=== PATIENT | male | born 1970 | race Caucasian/White ===

== ENCOUNTER 2018-08-17 12:44 | Outpatient (CLI) | payer OTHER ==
--- NOTE | 2018-08-17 15:49 | MRI ---
CERVICAL SPINE NONCONTRAST: 08/17/18 CLINICAL HISTORY: Cervical pain, herniated nucleus pulposus. FINDINGS: There is straightening of the normal cervical curvature. No acute marrow edema or compression fractur e. No significant subluxation. There is no intrinsic expansile process of the cervical spinal cord id entified. No significant central canal stenosis at C1-2 or C2-3 level. C3-4: There is a broad based disc bulge with cephalad disc extrusion producing mild effacement of the ventral thecal sac. Moderate bilateral neural foraminal stenosis present. C4-5: There is a right asymmetric disc osteophyte with mild central canal narrowing. Mild right elijah inal narrowing present. No significant left foraminal stenosis. C5-6: Broad based disc osteophyte is present with a prominent central component producing mass effect upon the ventral aspect of the spinal cord and moderate central canal stenosis. There is moderate bi lateral neural foraminal stenosis. C6-7: There is a right paracentral/subarticular disc protrusion with moderate cord compromise. Modera te left and mild right neural foraminal stenosis present. C7-T1: Left asymmetric disc osteophyte, with superimposed left subarticular/left foraminal disc protr usion producing moderate to severe left foraminal stenosis and impingement of the left C8 nerve root as well as moderate compromise of the left aspect of the cervical spinal cord. No high grade right fo raminal stenosis. There is mild intrinsic T2 signal of the cervical spinal cord notably at the C5 through C6 segments w hich may be related to component of compressive edema and/or myelomalacia. IMPRESSION: Multilevel degenerative changes at the cervical spine, most pronounced at the mid to lower aspect wi th associated cord compression and cord signal alteration, as discussed above. Prominent left forami nal protrusion component ate C7-T1 level markedly narrows the left foramen and impinges the left C8 n erve root. Correlate clinically. POS: TPC
== END 2018-08-17 12:45 | disposition home or self-care (01) ==
LOC: TBSIIMAG 12:44
PROVIDERS: ATTEND Neurological Surgery
DX: M50.23 Other cervical disc displacement, cervicothoracic region (principal); M47.812 Spondylosis without myelopathy or radiculopathy, cervical region; G95.20 Unspecified cord compression
CPT/HCPCS: 72141

== ENCOUNTER 2018-08-22 09:37 | Observation (INO) | payer OTHER ==
[2018-08-22 12:52] LABS: Hemoglobin 13.9 g/dL (14.0-18.0); Mean Corpuscular HGB CONC 32.6 g/dL (32.0-36.0); Mean Corpuscular Hemoglobin 30.9 pg (27.0-31.0); Mean Corpuscular Volume 94.8 fL (78.0-98.0); Mean Platelet Volume 6.3 fL (7.4-10.4); Platelet Count 238 thou/uL (130-400); RBC Distribution Width 11.9 % (11.5-14.5); White Blood Cell (WBC) Count 13.1 thou/uL (4.8-10.8)
[2018-08-22] MEDS ORDERED: CEFAZOLIN 2 GM/50 ML BAG ONE (12:59)
[2018-08-22] MEDS ORDERED: Sodium Chloride 0.9% 10 ML ONE (13:03)
[2018-08-22 13:12] LABS: Anion Gap 11 mmol/L (10-20); BUN (Urea Nitrogen) 16 mg/dL (8.9-20.6); Calc. Creatinine Clearance 163 mL/min (70-130); Calcium 9.3 mg/dL (7.8-10.44); Carbon Dioxide 28 mmol/L (22-29); Chloride 104 mmol/L (98-107); Estimated GFR-MDRD Greater than 90; Glucose 103 mg/dL (70-105); Potassium 4.4 mmol/L (3.5-5.1); Sodium 139 mmol/L (136-145)
[2018-08-22] MEDS ORDERED: PROPOFOL 200 MG/20 ML VIAL ONE (13:44)
[2018-08-22] MEDS ORDERED: Ondansetron PF 4 MG/2 ML Vial ONE (13:44)
[2018-08-22] MEDS ORDERED: Lidocaine 1% PF 5 ML VIAL ONE (13:44)
[2018-08-22] MEDS ORDERED: Glycopyrrolate 0.2 MG/ML 5 ML SYRINGE ONE (13:44)
[2018-08-22] MEDS ORDERED: PHENYLEPHRINE-NS 100 MCG/ML 10 ML SYRINGE ONE (13:44)
[2018-08-22] MEDS ORDERED: Fentanyl 100 MCG/2 ML VIAL ONE ×5 (14:46→17:18)
[2018-08-22] MEDS ORDERED: Tamsulosin HCl 0.4 MG CAP ONE (16:42)
[2018-08-22] MEDS ORDERED: Ondansetron HCl/PF 4 MG/2 ML Vial IVP PRN (16:44)
[2018-08-22] MEDS ORDERED: Promethazine HCl 25 MG/ML VIAL SLOW IVP PRN (16:44)
[2018-08-22] MEDS ORDERED: Morphine Sulfate 2 MG/ML SYRINGE SLOW IVP PRN (16:44)
[2018-08-22] MEDS ORDERED: Promethazine HCl 25 MG/ML VIAL IM PRN (16:44)
[2018-08-22] MEDS ORDERED: Labetalol HCl 100 MG/20 ML VIAL ONE (16:49)
--- NOTE | 2018-08-22 17:19 | OP ---
DATE OF SURGERY: 08/22/2018 SURGEON: Aris Duran M.D. AVIATION PROGRAM MANAGER: Rufino Britt PA-C PROCEDURE: Anterior cervical discectomy C5-6, C6-7 and C7-T1, interbody arthrodesis, intravertebral biomechanical device, local morselized autograft, demineralized bone matrix, anterior titanium instru mentation C5-T1. PROCEDURE IN DETAIL: The patient was brought to the operating room, intubated. He was positioned saez pine, head in modest extension on a gel-filled donut. Incision was made in the right precervical are a dissecting medial to the sternocleidomastoid muscle, identified the anterior cervical spine and our level was confirmed by x-ray. We debrided anterior osteophytes, placed distraction across the disk spaces, and using the operating microscope and microdissection techniques, completely decompressed th e intravertebral disks from foramen to foramen with particular attention to the left. A complete dec ompression was achieved in all affected levels. The bony endplates were then decorticated for the pu rpose of arthrodesis and appropriately sized intravertebral biomechanical PEEK device was brought int o the field, filled with demineralized bone matrix and local morselized autograft, and tapped into pl dona securely at C5-6, C6-7 and C7-T1. Next, an anterior plate was brought in the field and secured t o C5, C6, C7 and T1 using two 14 mm screws at each level. The wound was then extensively irrigated, immaculate hemostasis was secured, and the wound was closed in anatomic layers over a drain.
[2018-08-22] MEDS ORDERED: Morphine 2 MG/ML SYRINGE ONE (17:26)
[2018-08-22] MEDS ORDERED: HYDROcodone/Acetaminophen 10/325 mg Tablet PO PRN ×2 (17:54→22:37)
[2018-08-22] MEDS ORDERED: Mag-Al 1200 mg/1200 mg/30 ML UDCUP PO PRN (17:54)
[2018-08-22] MEDS ORDERED: Ondansetron PF 4 MG/2 ML Vial IVP PRN (17:54)
[2018-08-22] MEDS ORDERED: tiZANidine HCl 4 MG TAB PO PRN (17:54)
[2018-08-22] MEDS ORDERED: diphenhydrAMINE 50 MG/ML VIAL IVP PRN (17:54)
[2018-08-22] MEDS ORDERED: traMADol HCl 50 MG TAB PO PRN ×4 (17:54→23:00)
[2018-08-22] MEDS ORDERED: diphenhydrAMINE 25 MG CAP PO PRN (17:54)
[2018-08-22] MEDS ORDERED: Acetaminophen/Codeine 30-300mg Tablet PO PRN (17:54)
[2018-08-22] MEDS ORDERED: Morphine 4 MG/ML VIAL SLOW IVP PRN (17:54)
[2018-08-22] MEDS ORDERED: Milk Of Magnesia 30 ML UDCUP PO PRN (17:54)
[2018-08-22] MEDS: Sodium Chloride 0.9% 1,000 ML IV SCH (19:33)
[2018-08-22] MEDS: HYDROcodone/Acetaminophen 10/325 mg Tablet PO PRN (20:50)
[2018-08-22 21:02] VITALS: BMI 34.9
[2018-08-22] MEDS: CEFAZOLIN 2 GM/50 ML-DEXTROSE 2 GM in Premix Bag 1 BAG IVPB SCH (22:24)
[2018-08-22] MEDS ORDERED: Ondansetron ODT 4 MG TAB PO PRN (22:37)
[2018-08-22] MEDS ORDERED: Cyclobenzaprine 10 MG TAB PO PRN (22:37)
[2018-08-23] MEDS: HYDROcodone/Acetaminophen 10/325 mg Tablet PO PRN (00:58)
[2018-08-23] MEDS ORDERED: Morphine 2 MG/ML SYRINGE SLOW IVP PRN (03:06)
[2018-08-23 04:18] VITALS: TEMP 98.1
--- NOTE | 2018-08-23 05:12 | CON ---
DATE OF CONSULTATION: 08/23/2018 REASON FOR CONSULTATION: Medical management. HISTORY OF PRESENT ILLNESS: This is a 48-year-old male who was brought to the hospital and had anter ior cervical diskectomy C5-C6, C6-C7 and C7-T1, interbody arthrodesis, intravertebral biomechanical d evice, local morselized autograft, demineralized bone matrix, anterior titanium instrumentation of th e C5 and T1, now we have been consulted to manage the patient status post-surgery. REVIEW OF SYSTEMS: Positive for pain in the neck, otherwise all systems are reviewed and are negativ e. PAST MEDICAL HISTORY: Diverticulosis, kidney stones. FAMILY HISTORY: Noncontributory to this visit. PAST SURGICAL HISTORY: Esophageal myotomy, appendectomy, lumbar surgery. PSYCHIATRIC HISTORY: No psych history. SOCIAL HISTORY: Denies smoking, denies illicit drug use and denies alcohol use. ALLERGIES: No known drug allergies. CURRENT MEDICATIONS: The patient is on atorvastatin 40 mg, cyclobenzaprine 10 mg, hydrocodone 10 mg/ 325 mg, metoprolol succinate 50 mg XL, ondansetron 4 mg, Flomax 0.4 mg, and tramadol 50 mg. PHYSICAL EXAMINATION: VITAL SIGNS: Blood pressure is 146/80, heart rate is 111, respiratory rate 24, oxygen saturation is 98, temperature is 98. GENERAL: The patient is lying in bed with his BiPAP machine on, unable to speak in full sentences, n ot in acute distress. HEENT: Normocephalic, atraumatic. Pupils are equally round and reactive to light. Extraocular move ments are intact. No scleral icterus. NECK: Patient has a dressing at the anterior aspect of his neck, status post-surgery the patient is lying comfortably, has some tenderness and some restricted range of motion at the neck. LUNGS: Clear to auscultation bilaterally. No wheezing, no rales, no rhonchi is appreciated. CARDIOVASCULAR: Positive S1, S2, regular rate and rhythm, no murmurs, no gallops or rubs appreciated . ABDOMEN: Soft, nontender, nondistended. Positive bowel sounds in all quadrants. EXTREMITIES: 5/5 upper extremity strength, 5/5 lower extremity strength. Good pulses bilaterally in the upper and lower extremities. PSYCHIATRIC: Alert, oriented x3, normal affect. NEUROLOGIC: Cranial nerves II-XII grossly intact. No neurologic deficit noted. LABORATORY DATA: WBC is 13.1, hemoglobin is 13.9, platelet count is 238. Sodium is 139, potassium i s 4.4, chloride is 104, carbon dioxide 28, anion gap of 11, BUN 16, creatinine 0.87, glucose 103, quique cium is 9.3. ASSESSMENT AND PLAN: This is a 48-year-old male status post laminectomy, which we are following up f or medical management at this time. At this time, we will start patient on his home medications. We will monitor patient's blood pressures closely. We will give patient p.r.n. pain medication to cont rol patient's pain and we will continue to monitor the patient very closely. Deep venous thrombosis and gastrointestinal prophylaxis.
[2018-08-23] MEDS ORDERED: Tamsulosin HCl 0.4 MG CAP PO SCH ×2 (06:00→09:00)
[2018-08-23] MEDS: CEFAZOLIN 2 GM/50 ML-DEXTROSE 2 GM in Premix Bag 1 BAG IVPB SCH (06:02)
[2018-08-23] MEDS ORDERED: Atorvastatin Calcium 40 MG TAB PO SCH (09:00)
[2018-08-23] MEDS: Sodium Chloride 0.9% 1,000 ML IV SCH (09:13)
[2018-08-23 11:22] VITALS: BP 119/70
--- NOTE | 2018-08-28 21:23 | EKG ---
Test Reason : PREOP Blood Pressure : / mmHG Vent. Rate : 074 BPM Atrial Rate : 074 BPM P-R Int : 148 ms QRS Dur : 104 ms QT Int : 396 ms P-R-T Axes : 036 -12 018 degrees QTc Int : 439 ms Normal sinus rhythm Normal ECG No previous ECGs available Confirmed by OLEGARIO REGALADO (2) on 08/28/2018 9:23:24 PM Referred By: PETRA Confirmed By:OLEGARIO REGALADO
== END 2018-08-23 13:22 | disposition home or self-care (01) ==
LOC: SDC 09:37 → SURG B 13:00 → EDSTATUS 13:48
PROVIDERS: ADMIT Neurological Surgery; ATTEND Neurological Surgery
PROC: 0RG40A0 Fusion of Cervicothoracic Vertebral Joint with Interbody Fusion Device, Anterior Approach, Anterior Column, Open Approach (ICD-10-PCS; principal; 2018-08-22)
PROC: 0RT50ZZ Resection of Cervicothoracic Vertebral Disc, Open Approach (ICD-10-PCS; 2018-08-22)
DX: M54.12 Radiculopathy, cervical region (principal); I10 Essential (primary) hypertension; N40.0 Benign prostatic hyperplasia without lower urinary tract symptoms; Z79.899 Other long term (current) drug therapy; Z98.890 Other specified postprocedural states
CPT/HCPCS: 36415; 76001; 80048; 85027; 93005; 93010; 96374; 96375; 96376; C1713; C1776; G0378; G8978-GP-CI; G8979-GP-CI; G8980-GP-CI; J1200; J2001; J2270; J2405; J2704; J3010; J3490

== ENCOUNTER 2018-09-08 13:35 | Outpatient (CLI) | payer OTHER ==
--- NOTE | 2018-09-08 15:57 | RAD ---
FOUR VIEWS CERVICAL SPINE: 09/08/18 HISTORY: Cervical radiculopathy at C7. Patient is post anterior cervical fusion but continues to have neck pa in. FINDINGS: C1 to the cervicothoracic junction is seen on the lateral and swimmer's views of the cervical spine. Postsurgical changes related to anterior cervical fusion are seen with anterior plate and screws rogers sfixing the C5 through T1 vertebral bodies with intradiscal prostheses at these levels. No hardware complication is appreciated on the provided images. The vertebral body heights are within normal limi ts. No fracture or subluxation identified. Prevertebral soft tissues are mildly prominent. IMPRESSION: 1. Postsurgical change related to anterior cervical fusion with anterior plate and screws trans fixing the C5 through T1 levels. 2. Mild prominence of the prevertebral soft tissues which may be postoperative in origin. POS: ASHLEY
== END 2018-09-08 13:36 | disposition home or self-care (01) ==
LOC: TBSIIMAG 13:35
PROVIDERS: ATTEND Neurological Surgery
DX: M54.12 Radiculopathy, cervical region (principal); Z98.1 Arthrodesis status
CPT/HCPCS: 72040

== ENCOUNTER 2018-10-20 13:11 | Outpatient (CLI) | payer OTHER ==
--- NOTE | 2018-10-20 16:24 | RAD ---
CERVICAL SPINE FOUR VIEWS: HISTORY: Follow up cervical fusion hardware. COMPARISON: 09/08/2018 FINDINGS: Redemonstration of an anterior fusion plate with a transvertebral body screw at C5, C6, C7, and T1. Evaluation of the plate and screw at T1 is limited. There are bilateral screws at C5, C6, and T1. T here is a solitary right-sided screw at C7. There is a prosthesis at the C5-C6, C6-C7, and C7-T1 dis k spaces. With regard to the hardware, there is no evidence of lucency. There is stable straighteni ng and alignment of the cervical spine on the lateral and Swimmer's projections. The predental space is normal. There is no prevertebral soft tissue swelling. On the AP projection, there is no malalignment. Suboptimal evaluation of the odontoid process on the open-mouth projection. IMPRESSION: Findings compatible with previous cervical fusion. No significant change. POS: BRIAN
== END 2018-10-20 13:12 | disposition home or self-care (01) ==
LOC: TBSIIMAG 13:11
PROVIDERS: ATTEND Neurological Surgery
DX: M48.02 Spinal stenosis, cervical region (principal)
CPT/HCPCS: 72040